=== PATIENT | female | born 1950 | race Caucasian/White ===

== ENCOUNTER 2021-01-01 09:04 | Day surgery (SDC) | payer MEDICARE ==
[2021-01-01] VITALS (8 sets, daily range): BP systolic 107–148; BP diastolic 55–75
[~2021-01-01] VITALS: Ht 165.1 cm; Wt 70.6 kg
[~2021-01-01 09:04] MED LIST: ASPI-611 PO; CARV-50 PO; CLOP75TA33 PO; MELO-102 PO; RAMI2.5C54 PO; ROSU20TA2 PO; TRAZ150T78 PO
[2021-01-01] MEDS ORDERED: normal saline 1,000 ML IV SCH (09:30)
[2021-01-01] MEDS ORDERED: diphenhydrAMINE 25mg capsule PO PRN (09:30)
[2021-01-01] MEDS ORDERED: CALC-1215 PO (09:49)
[2021-01-01] MEDS ORDERED: RAMI10CA69 PO (09:49)
[2021-01-01] MEDS ORDERED: AMLO10TA13 PO (09:49)
[2021-01-01] MEDS ORDERED: ESCI20TA39 PO (09:49)
[2021-01-01] MEDS ORDERED: fentaNYL/PF 50MCG/1 ML 2ML syringe ONE (10:38)
[2021-01-01] MEDS ORDERED: midazolam 1 mg/ML 2ml injection ONE ×2 (10:38→11:19)
[2021-01-01] MEDS ORDERED: LIDOcaine 1% (10mg/ml)w/preservative injection 20ml MDV ONE (10:38)
[2021-01-01] MEDS ORDERED: verapamil 2.5 mg/ml inj IV ONE (10:38)
[2021-01-01] MEDS ORDERED: nitroGLYCERIN-Tridil 50MG/D5W 250 ML IV ONE (10:39)
[2021-01-01] MEDS ORDERED: heparin 1,000unit/ml 10ml vial 10 ML ONE (10:39)
[2021-01-01] MEDS ORDERED: iohexol 350 MG/ML 50ML vial IV ONE (10:39)
[2021-01-01] MEDS ORDERED: iohexol 350MG/ML 100ml bottle IV ONE (10:40)
[2021-01-01 10:43] LABS: ALBUMIN 3.7 G/DL (3.4-5.0); ANION GAP 10 (8-16); BLOOD UREA NITROGEN 18 MG/DL (7-18); BUN/CREATININE RATIO 20.5 (6.6-38.0); CALCIUM 8.8 MG/DL (8.5-10.1); CHLORIDE 108 MMOL/L (99-107); CREATININE 0.88 MG/DL (0.40-0.90); GLUCOSE 100 MG/DL (70-104); POTASSIUM 3.8 MMOL/L (3.5-5.1); SODIUM 144 MMOL/L (135-145); TOTAL CARBON DIOXIDE 26.4 MMOL/L (24-32); eGFR 64 ML/MIN
[2021-01-01 10:47] LABS: BASOPHILS % (AUTO) 0.5 % (0-1); EOSINOPHILS # (AUTO) 0.1 X10'3 (0-0.9); EOSINOPHILS % (AUTO) 2.2 % (0-6); HEMATOCRIT 40.7 % (35.0-45.0); HEMOGLOBIN 13.7 g/dl (12.0-16.0); LYMPHOCYTES # (AUTO) 2.1 X10'3 (1.1-4.8); LYMPHOCYTES % (AUTO) 38.8 % (21-51); MEAN CORPUSCULAR HEMOGLOBIN 31.1 PG (27.0-31.0); MEAN CORPUSCULAR HGB CONC 33.6 g/dL (33.0-36.5); MEAN CORPUSCULAR VOLUME 92.6 FL (78-98); MEAN PLATELET VOLUME 9.6 FL (7.4-10.4); MONOCYTES # (AUTO) 0.5 X10'3 (0-0.9); MONOCYTES % (AUTO) 9.7 % (2-12); NEUTROPHILS # (AUTO) 2.7 X10'3 (1.8-7.7); NEUTROPHILS % (AUTO) 48.8 % (42-75); PLATELET COUNT 196 X10'3 (140-440); WHITE BLOOD COUNT 5.5 X10'3 (4.5-11.0)
[2021-01-01] MEDS ORDERED: OXAZEpam 15mg capsule PO PRN (12:20)
[2021-01-01] MEDS ORDERED: ondansetron/PF 4mg/2ml inj IV PRN (12:20)
[2021-01-01] MEDS ORDERED: normal saline 1000ml 1,000 ML IV SCH (12:20)
[2021-01-01] MEDS ORDERED: HYDROcodone/acetaminophen 5mg/325mg tablet PO PRN (12:20)
[2021-01-01] MEDS ORDERED: HYDROcodone/acetaminophen 10/325mg tab PO PRN (12:20)
[2021-01-01] MEDS ORDERED: proCHLORperazine 10 MG/2 ml inj IV PRN (12:20)
== END 2021-01-01 15:00 | disposition home or self-care (01) ==
LOC: SSTAY O 09:04
PROVIDERS: ATTEND Internal Medicine Cardiovascular Disease
DX: I25.118 Atherosclerotic heart disease of native coronary artery with other forms of angina pectoris (principal); I25.2 Old myocardial infarction; I10 Essential (primary) hypertension; E78.5 Hyperlipidemia, unspecified; Z95.5 Presence of coronary angioplasty implant and graft; F17.200 Nicotine dependence, unspecified, uncomplicated
CPT/HCPCS: 36415; 80048; 83735; 85025; 85610; 93005; 93458; 99152; C1760; C1769; C1894; J1644; J2001; J2250; J3010; J7030; Q0163; Q9967; A4620; A6258; J3490